=== PATIENT | male | born 1990 | race Caucasian/White ===

== ENCOUNTER 2017-09-24 21:46 | Emergency (ER) | payer BC ==
--- NOTE | 2017-09-24 22:15 | ED ---
Psych HPI - General Chief Complaint: Psychiatric Symptoms Stated Complaint: Mental Health Time Seen by Provider: 09/24/17 22:00 Source: patient, RN notes reviewed Mode of arrival: ambulatory Limitations: no limitations - History of Present Illness Initial Comments: 27-year-old male presents emergency Department chief complaint of depression, suicidal ideation. Patient states that he's been having ongoing depression which is worsening. States that he just does not want to live anymore. He has no plan to harm himself. Patient states that the stems from a separation from his child's mother. Patient states he does not take any current medications. He does admit to use of marijuana denies any other illicit drug use or any alcohol abuse. Patient has no physical complaints at this time. Patient denies homicidal ideation - Related Data Home Medications Medication Instructions Recorded Confirmed No Known Home Medications [No 09/24/17 09/24/17 Known Home Medications] Allergies Allergy/AdvReac Type Severity Reaction Status Date / Time No Known Allergies Allergy Verified 09/24/17 22:26 Review of Systems ROS Statement: Those systems with pertinent positive or pertinent negative responses have been documented in the HPI. ROS Other: All systems not noted in ROS Statement are negative. Past Medical History Past Medical History: No Reported History History of Any Multi-Drug Resistant Organisms: None Reported Past Surgical History: No Surgical Hx Reported Past Psychological History: Depression Smoking Status: Never smoker Past Alcohol Use History: Occasional Past Drug Use History: Marijuana General Exam Limitations: no limitations General appearance: alert, in no apparent distress Head exam: Present: atraumatic, normocephalic, normal inspection Eye exam: Present: normal appearance, PERRL, EOMI. Absent: scleral icterus, conjunctival injection, periorbital swelling ENT exam: Present: normal exam, normal oropharynx Neck exam: Present: normal inspection, full ROM. Absent: tenderness, meningismus, lymphadenopathy Respiratory exam: Present: normal lung sounds bilaterally. Absent: respiratory distress, wheezes, rales, rhonchi, stridor Cardiovascular Exam: Present: regular rate, normal rhythm, normal heart sounds. Absent: systolic murmur, diastolic murmur, rubs, gallop, clicks Neurological exam: Present: alert, oriented X3, CN II-XII intact Psychiatric exam: Present: depressed, other (tearful) Skin exam: Present: warm, dry, intact, normal color. Absent: rash Course Vital Signs 09/24/17 21:56 Temperature 97.0 F L Pulse Rate 67 Respiratory 18 Rate Blood Pressure 140/79 O2 Sat by Pulse 100 Oximetry Medical Decision Making - Medical Decision Making 27-year-old male presents emergency department for psychiatric evaluation due to depression. Patient was evaluated by EPS a liter recommend inpatient this time. Patient will be discharged with outpatient services. - Lab Data Lab Results 09/24/17 Range/Units 22:39 Urine Opiates Screen Not Detected (NotDetected) Ur Oxycodone Screen Not Detected (NotDetected) Urine Methadone Screen Not Detected (NotDetected) Ur Propoxyphene Screen Not Detected (NotDetected) Ur Barbiturates Screen Not Detected (NotDetected) U Tricyclic Antidepress Not Detected (NotDetected) Ur Phencyclidine Scrn Not Detected (NotDetected) Ur Amphetamines Screen Not Detected (NotDetected) U Methamphetamines Scrn Not Detected (NotDetected) U Benzodiazepines Scrn Not Detected (NotDetected) Urine Cocaine Screen Not Detected (NotDetected) U Marijuana (THC) Screen Detected H (NotDetected) Disposition Clinical Impression: Depression Disposition: HOME SELF-CARE Condition: Stable Instructions: Depression (ED) Additional Instructions: Please return to the Emergency Department if symptoms worsen or any other concerns. Referrals: Donn Agee DO [Primary Care Provider] - 1-2 days Time of Disposition: 00:47
[2017-09-24 22:57] LABS: Amphetamine Screen,Urine Not Detected (NotDetected); Barbiturate Screen,Urine Not Detected (NotDetected); Benzodiazepines Screen,Urine Not Detected (NotDetected); Cocaine Screen,Urine Not Detected (NotDetected); Methadone Screen, Urine Not Detected (NotDetected); Opiate Screen,Urine Not Detected (NotDetected); Oxycodone Screen, Urine Not Detected (NotDetected); Phencyclidine Screen,Urine Not Detected (NotDetected); Tricyclic Antidepressant,Urine Not Detected (NotDetected); Urn Cannabinoid Scrn Detected (NotDetected)
[2017-09-25 01:55] VITALS: BP 129/79; PULSE 82; RESP 16; TEMP 98
== END 2017-09-25 01:55 | disposition home or self-care (01) ==
LOC: EC 21:46
DX: F32.9 Major depressive disorder, single episode, unspecified (principal); F12.90 Cannabis use, unspecified, uncomplicated; R45.83 Excessive crying of child, adolescent or adult; R45.851 Suicidal ideations
CPT/HCPCS: 80306; 82075; 99284

== ENCOUNTER 2019-10-26 23:36 | Emergency (ER) | payer BC ==
--- NOTE | 2019-10-27 00:32 | XR ---
EXAMINATION TYPE: XR chest 2V DATE OF EXAM: 10/27/2019 COMPARISON: NONE HISTORY: Chest pain TECHNIQUE: FINDINGS: Heart and mediastinum are normal. Lungs are clear. Diaphragm is normal. Bony thorax appears normal. IMPRESSION: Normal chest.
--- NOTE | 2019-10-27 02:04 | ED ---
Chest Pain HPI - General Chief Complaint: Chest Pain Stated Complaint: Chest Pain Time Seen by Provider: 10/27/19 01:47 Source: patient Mode of arrival: ambulatory Limitations: no limitations - History of Present Illness Initial Comments: This patient is 29-year-old man who presents to be evaluated for left-sided chest pain that has been going on intermittently for one year. Patient states that it is intermittent and usually lasts for a few seconds when it comes on. She has not noticed anything that reliably brings it on or helps it. It does not seem to be exertional, he is able to play hockey and engage in other sports without it necessarily coming on. He has not noted any associated symptoms. MD Complaint: chest pain Onset/Timin -: year(s) Pain Location: left chest Quality: sharp Consistency: intermittent, now resolved Improves With: nothing Worsens With: nothing Treatments Prior to Arrival: none - Related Data Home Medications Medication Instructions Recorded Confirmed No Known Home Medications 09/24/17 09/24/17 Allergies Allergy/AdvReac Type Severity Reaction Status Date / Time naproxen Allergy Rash/Hives Verified 10/27/19 00:04 Review of Systems ROS Statement: Those systems with pertinent positive or pertinent negative responses have been documented in the HPI. ROS Other: All systems not noted in ROS Statement are negative. Constitutional: Denies: fever Respiratory: Denies: cough, dyspnea, wheezes Cardiovascular: Reports: chest pain. Denies: palpitations, dyspnea on exertion, orthopnea, syncope Gastrointestinal: Denies: abdominal pain, vomiting, diarrhea Genitourinary: Denies: dysuria Musculoskeletal: Denies: back pain Skin: Denies: rash Neurological: Denies: headache EKG Findings - EKG Results: EKG: interpreted by ERMD, sinus rhythm, normal axis, normal QRS, normal ST/T, no acute changes EKG shows: bradycardia (Rate 56 bpm) Past Medical History Past Medical History: No Reported History History of Any Multi-Drug Resistant Organisms: None Reported Past Surgical History: No Surgical Hx Reported Past Psychological History: Depression Smoking Status: Never smoker Past Alcohol Use History: Occasional Past Drug Use History: Marijuana General Exam Limitations: no limitations General appearance: alert, in no apparent distress Head exam: Present: atraumatic, normocephalic Eye exam: Present: normal appearance. Absent: scleral icterus, conjunctival injection Neck exam: Present: normal inspection Respiratory exam: Present: normal lung sounds bilaterally, chest wall tenderness (I was able to reproduce the patient's chest pain). Absent: respiratory distress, wheezes, rales, rhonchi, stridor, accessory muscle use, decreased breath sounds, prolonged expiratory Cardiovascular Exam: Present: regular rate, normal rhythm, normal heart sounds. Absent: systolic murmur, diastolic murmur, rubs, gallop GI/Abdominal exam: Present: soft. Absent: distended, tenderness, guarding, rebound, rigid, mass Extremities exam: Present: normal inspection, normal capillary refill. Absent: pedal edema, calf tenderness Back exam: Present: normal inspection. Absent: CVA tenderness (R), CVA tenderness (L) Neurological exam: Present: alert Skin exam: Present: warm, dry, intact, normal color. Absent: rash Course Vital Signs 10/27/19 10/27/19 10/27/19 00:02 01:50 01:53 Temperature 97.8 F 97.7 F Pulse Rate 81 62 Pulse Rate [ 62 Pulse Oximetery ] Respiratory 20 15 Rate Blood Pressure 121/72 131/79 O2 Sat by Pulse 98 94 L Oximetry Disposition Clinical Impression: Chest pain Disposition: HOME SELF-CARE Condition: Good Instructions (If sedation given, give patient instructions): Chest Pain (ED) Is patient prescribed a controlled substance at d/c from ED?: No Referrals: Donn Agee DO [Primary Care Provider] - 1-2 days
[2019-10-27 02:55] LABS: Basophils % (A) 0 %; Eosinophils # (A) 0.3 k/uL (0-0.7); Eosinophils % (A) 4 %; HCT 40.9 % (39.0-53.0); HGB 14.2 gm/dL (13.0-17.5); Lymphocytes # (A) 2.4 k/uL (1.0-4.8); Lymphocytes % (A) 33 %; MCH 31.8 pg (25.0-35.0); MCHC 34.6 g/dL (31.0-37.0); MCV 91.7 fL (80.0-100.0); Mean Platelet Volume 8.1; Monocytes # (A) 0.5 k/uL (0-1.0); Monocytes % (A) 7 %; Neutrophils # (A) 3.9 k/uL (1.3-7.7); Neutrophils % (A) 54 %; Platelet Count 237 k/uL (150-450); RBC 4.46 m/uL (4.30-5.90); RDW 12.4 % (11.5-15.5); WBC 7.3 k/uL (3.8-10.6)
[2019-10-27 03:21] LABS: ALT 36 U/L (4-49); AST 31 U/L (17-59); African American GFR (CKD) >90 (>60 ml/min/1.73 sqM); Albumin 4.3 g/dL (3.5-5.0); Alkaline Phosphatase 68 U/L (38-126); Anion Gap 7 mmol/L; Blood Urea Nitrogen 18 mg/dL (9-20); C Reactive Protein <5.0 mg/L (<10.0); Calcium 9.6 mg/dL (8.4-10.2); Carbon Dioxide 27 mmol/L (22-30); Chloride 102 mmol/L (98-107); Glucose 110 mg/dL (74-99); Non-African American GFR(CKD) >90 (>60 ml/min/1.73 sqM); Potassium 3.7 mmol/L (3.5-5.1); Sodium 136 mmol/L (137-145); Total Bilirubin 0.8 mg/dL (0.2-1.3); Total Protein 7.1 g/dL (6.3-8.2)
[2019-10-27 04:30] VITALS: BP 136/74; PULSE 74; RESP 19; TEMP 98.7
== END 2019-10-27 04:17 | disposition home or self-care (01) ==
LOC: EC 23:36
DX: R07.9 Chest pain, unspecified (principal); Z88.6 Allergy status to analgesic agent
CPT/HCPCS: 36415; 71046; 80053; 84484; 85025; 86140; 99285

== ENCOUNTER 2023-06-10 13:31 | Day surgery (SDC) | payer BC ==
[2023-06-06 11:47] VITALS: BMI 23.0
--- NOTE | 2023-06-09 13:49 | P.HPOR ---
History of Present Illness H&P Date: 06/09/23 Subjective: This is a 32 year old male that presents today for initial evaluation regarding a left thumb injury that occurred on 06/03/2023 when he had the thumb crushed in a log splitter. He went to the emergency department immediately afterwards where his wound was irrigated and loosely approximated. He's had pain, swelling and throbbing in the fingertip with occasional numbness. Physical Examination: LUE: AIN/PIN/Radial/Ulnar/Median motor intact. Radial/Ulnar/Median SILT. 2+/4 Radial/Ulnar pulses palpated. 5/5 APB, 5/5 FDI. nailplate avulsion with 100% subungual hematoma with elevated nailbed visualized. 6cm longitudinal laceration over the ulnar border of the thumb from the tip of the thumb all the way to the first webspace loosely approximated. Able to fire tip if thumb although weak and limited due to swelling/pain. Imaging: X-Rays of the left hand 3v reviewed from ED visit on 06/03/23 demonstrate minimally displaced thumb distal phalanx fracture. Impression: 1.) Left thumb crush injury with open distal phalanx fracture. 2.) Left thumb nail plate avulsion 3.) Left thumb nailbed laceration 4.) Left thumb complex 6cm laceration Plan: Diagnosis and treatment options were discussed with the patient. I recommend surgical exploration of his complex finger laceration with possible nailbed repair, nailplate removal and repair of any damaged nerves or tendons. Risks and benefits of surgery including bleeding, infection, damage to surrounding tissue, need for further surgery, residual numbness were discussed and the patient wished to go forward with surgery. He is given 6 weeks off of work post operatively and is to continue his antibiotics to completion. The patient was agreeable with this plan. CC: Dr. Cyndie Bowser DO Orthopedic Hand/Upper Extremity Surgeon Past Medical History Past Medical History: No Reported History History of Any Multi-Drug Resistant Organisms: None Reported Past Surgical History: No Surgical Hx Reported Additional Past Anesthesia/Blood Transfusion Reaction / Comment(s): HAS HAD NO ANESTH. Past Psychological History: Depression Smoking Status: Vaper Past Alcohol Use History: Occasional Past Drug Use History: Marijuana - Past Family History Father Family Medical History: No Reported History Medications and Allergies Home Medications Medication Instructions Recorded Confirmed Type Cephalexin [Keflex] 500 mg PO Q6HR #40 cap 06/03/23 06/06/23 Rx HYDROcodone/APAP 7.5-325MG [[place] 1 tab PO Q4HR PRN #18 tab 06/03/23 06/06/23 Rx 7.5-325] Ibuprofen [Motrin] 600 mg PO Q6HR PRN #30 tab 06/03/23 06/06/23 Rx Allergies Allergy/AdvReac Type Severity Reaction Status Date / Time naproxen Allergy Rash/Hives Verified 06/06/23 11:33 Physical Examination Osteopathic Statement: *. No significant issues noted on an osteopathic structural exam other than those noted in the History and Physical/Consult.
[~2023-06-10 13:31] MED LIST: DEXAMETHASONE SOD PHOSPHATE 4 MG/ML 1 ML VIAL IV ONE; HYDROmorphone 0.5 MG/0.5 ML SYRINGE IVP PRN; LACTATED RINGERS 1,000 ML IV SCH; ONDANSETRON 4 MG/2 ML VIAL IVP ONE
[2023-06-10 14:03] VITALS: TEMP 97.1
[2023-06-10] MEDS ORDERED: MIDAZOLAM 2 MG/2 ML VIAL ONE (15:39)
[2023-06-10] MEDS ORDERED: fentaNYL (PF) 50 MCG/ML 2 ML AMP ONE (15:39)
[2023-06-10] MEDS ORDERED: KETOROLAC 15 MG/ML 1 ML VIAL ONE (15:39)
[2023-06-10] MEDS ORDERED: PROPOFOL 10 MG/ML 20 ML VIAL IV ONE (15:39)
[2023-06-10] MEDS ORDERED: LIDOCAINE 2% INJ 20 MG/ML (2 ML VIAL) ONE (15:39)
[2023-06-10] MEDS ORDERED: BACITRACIN ZINC 500 UNIT/GM OINT 28.4 GM TUBE TOPICAL ONE (16:33)
[2023-06-10] MEDS ORDERED: BUPIVACAINE (PF) 0.5% 30 ML VIAL SQ ONE (16:48)
--- NOTE | 2023-06-10 17:21 | P.OP ---
Date of Procedure: 06/10/23 Preoperative Diagnosis: 1.) Left thumb laceration 2.) Left thumb nail plate avulsion 3.) Left thumb nailbed laceration Postoperative Diagnosis: 1.) Left thumb open distal phalanx fracture 2.) Left thumb nail plate avulsion 3.) Left thumb nailbed laceration 4.) Left thumb degloving injury Procedure(s) Performed: 1.) Left thumb laceration repair, 6cm. 2.) Left thumb nail plate removal 3.) Left thumb nailbed laceration repair 4.) Incisional debridement of non viable skin, subcutaneous fat and bone left thumb. Anesthesia: GETA Surgeon: Martinez Bowser Web Marketing Strategist #1: Benny Galeano Estimated Blood Loss (ml): 5 Pathology: none sent Condition: stable Disposition: PACU Description of Procedure: This is a 32 year old male who sustained a crush injury to the left thumb who presents today for surgical exploration with possible nerve, tendon, nailbed and laceration repair. Risks and benefits of surgery were discussed with the patient including bleeding, damage to surrounding tissue, infection, need for further surgery as well as risks of anesthesia including pulmonary embolism and even and the patient wished to proceed with surgical intervention. The patient was seen in the pre-operative area by myself. Consent and H&P were completed and updated. The correct extremity was marked in the pre-operative area by myself and all other questions were answered. Operative Narrative: The patient was brought to the operating room by the department of anesthesia. They remained on the portable stretcher and a rolling hand table was brought to the side of the operative extremity. Pre-operative time out was performed indicating the correct patient, procedure and laterality. All in the room agreed. Pre-operative antibiotics were given prior to skin incision. The patient was then drifted off to sleep by the department of anesthesia. A nonsterile tourniquet was then applied to the operative extremity and the left upper extremity was then prepped and draped in normal sterile fashion. The operative extremity was the exsanguinated with an esmarch bandage and the tourniquet was inflated to 250mmHg. Previous sutures that were present were removed and blunt dissection with tenotomy scissors was used to open the laceration which extended from the hyponychial region to the first webspace along the ulnar border of the thumb. The distal phalanx was completely degloved from it surrounding soft tissue attachments at the hypothenar region. There is an oblique laceration of the sterile matrix. The nail plate was sharply excised with a 15 blade scalpel from the underlying sterile matrix without complication. A liter of sterile saline was used to irrigate the wound and nonviable skin and subcutaneous tissue was sharply excised with a 15 blade scalpel and scissors. The FPL and EPL tendons were intact. The digital nerves were identified and the full-thickness degloved volar pulp. After thorough irrigation the nailbed laceration was opened and comminuted fragments of small distal phalanx were removed and the nailbed laceration was repaired with interrupted 6-0 Vicryl sutures in a tension-free manner. Skin was then reapproximated loosely with 4-0 nylon suture. The hyponychial region that was previously degloved was then attached in a loose manner with 5-0 chromic suture. The wound was then thoroughly irrigated and a temporary splint was placed underneath the eponychial fold. A digital nerve b lock was performed of the thumb with 13 mL of 0.5% bupivacaine. Sterile dressing consisting of bacitracin Adaptic 4 x 4's and cast padding and Golden wrap was applied. The patient was then woken by the department of anesthesia and transferred to PACU in stable condition. Caio galeano PA-C was present for the case to assist in major portions of procedure. Martinez Bowser D.O. Orthopedic Hand/Upper Extremity Surgeon
[2023-06-10 17:39] VITALS: RESP 16
[2023-06-10] MEDS ORDERED: HYDROcodone/APAP 7.5-325MG 1 EACH TAB PO ONE (17:40)
[2023-06-10] MEDS ORDERED: HYDROcodone/APAP 7.5-325MG 1 EACH TAB ONE (17:42)
[2023-06-10 17:49] VITALS: BP 141/55; PULSE 63
== END 2023-06-10 18:11 | disposition home or self-care (01) ==
LOC: OR 13:31
PROVIDERS: ATTEND Orthopaedic Surgery Hand Surgery
DX: S62.522B Displaced fracture of distal phalanx of left thumb, initial encounter for open fracture (principal); W23.0XXA Caught, crushed, jammed, or pinched between moving objects, initial encounter; F32.A Depression, unspecified; Z86.59 Personal history of other mental and behavioral disorders; Z88.6 Allergy status to analgesic agent; Z79.899 Other long term (current) drug therapy
CPT/HCPCS: 11760; 26418; J1100; J0690; J2405; J1170; J0665